=== PATIENT | female | born 1960 | race Caucasian/White ===

== ENCOUNTER 2017-02-14 11:02 | Emergency (ER) | payer MEDICARE, OTHER ==
[2017-02-14] MEDS ORDERED: HYDROcodone/Acetaminophen 10/325 mg Tablet ONE (11:19)
[2017-02-14] MEDS ORDERED: Ibuprofen 800 MG TAB ONE (11:19)
[2017-02-14 11:32] LABS: Blood, Urine Negative (Negative); Clarity Cloudy (Clear); Glucose, Urine (Dipstick) Negative (Negative); Leukocyte Trace (Negative); Nitrite Negative (Negative); Protein, Urine (Dipstick) 100 mg/dL (Neg-Trace)
[2017-02-14 11:40] LABS: Bilirubin Negative (Negative)
[2017-02-14 11:41] LABS: Bacteria/HPF 2+ HPF (None Seen)
[2017-02-14 11:42] LABS: Crystals/HPF 1+ AMORPH URATES HPF (Negative); RBC/HPF 0-3 HPF (0-3)
[2017-02-14 11:52] LABS: Specific Gravity, Urine Greater/Equal 1.030 (1.005-1.030)
== END 2017-02-14 11:54 | disposition home or self-care (01) ==
LOC: BURERS 11:02
DX: M54.5 Low back pain (principal); N30.00 Acute cystitis without hematuria; M19.90 Unspecified osteoarthritis, unspecified site; E03.9 Hypothyroidism, unspecified; I10 Essential (primary) hypertension; F31.9 Bipolar disorder, unspecified; F20.9 Schizophrenia, unspecified; F17.210 Nicotine dependence, cigarettes, uncomplicated; X50.3XXA Overexertion from repetitive movements, initial encounter; Z79.899 Other long term (current) drug therapy
CPT/HCPCS: 81003; 81015; 99283

== ENCOUNTER 2018-10-26 09:38 | Emergency (ER) | payer MEDICARE, MEDICAID | END 2018-10-26 10:15 | disposition home or self-care (01) | LOC: BURERS 09:38 | DX: J06.9 Acute upper respiratory infection, unspecified (principal); J44.9 Chronic obstructive pulmonary disease, unspecified; E03.9 Hypothyroidism, unspecified; I10 Essential (primary) hypertension; F31.9 Bipolar disorder, unspecified; F20.9 Schizophrenia, unspecified; F43.10 Post-traumatic stress disorder, unspecified; F17.210 Nicotine dependence, cigarettes, uncomplicated | CPT/HCPCS: 99281 ==

== ENCOUNTER 2019-09-11 10:53 | Inpatient (IN) | payer MEDICARE, MEDICAID ==
[2019-09-11] MEDS ORDERED: methylPREDNISolone Sod Succ/PF 125 MG/2 ML VIAL ONE (11:15)
[2019-09-11 11:33] LABS: #Lymphocytes 0.7 thou/uL (1.20-3.40); #Monocytes 0.5 thou/uL (0.11-0.59); #Neutrophils 6.9 thou/uL (1.40-6.50); %Basophils 0.4 % (0.0-1.0); %Eosinophils 0.6 % (0.0-10.0); %Lymphocytes 8.1 % (21.0-51.0); %Monocytes 5.7 % (0.0-10.0); %Neutrophils 85.2 % (42.0-75.0); Hemoglobin 14.1 g/dL (12.0-16.0); Mean Corpuscular HGB CONC 33.7 g/dL (32.0-36.0); Mean Corpuscular Hemoglobin 31.4 pg (27.0-31.0); Mean Corpuscular Volume 93.2 fL (78.0-98.0); Mean Platelet Volume 6.9 fL (7.4-10.4); Platelet Count 230 thou/uL (130-400); RBC Distribution Width 11.8 % (11.5-14.5); Red Blood Cell (RBC) Count 4.47 mill/uL (4.20-5.40); White Blood Cell (WBC) Count 8.1 thou/uL (4.8-10.8)
[2019-09-11] MEDS ORDERED: Albuterol Sulfate 1.25 MG/3 ML NEB ONE (11:42)
[2019-09-11] MEDS ORDERED: Albuterol Sulfate 2.5 mg/0.5 ml Neb ONE (11:43)
[2019-09-11 11:48] LABS: ALT (SGPT) 20 U/L (8-55); AST (SGOT) 23 U/L (5-34); Albumin 4.3 g/dL (3.5-5.0); Alkaline Phosphatase 63 U/L (40-110); Anion Gap 19 mmol/L (10-20); BUN (Urea Nitrogen) 12 mg/dL (9.8-20.1); Bilirubin, Total 0.9 mg/dL (0.2-1.2); Calc. Creatinine Clearance 0 mL/min (70-130); Calcium 8.9 mg/dL (7.8-10.44); Carbon Dioxide 24 mmol/L (22-29); Chloride 102 mmol/L (98-107); Estimated GFR-MDRD 46; Globulin 4.4 g/dL (2.4-3.5); Glucose 91 mg/dL (70-105); Potassium 4.7 mmol/L (3.5-5.1); Protein, Total 8.7 g/dL (6.0-8.3); Sodium 140 mmol/L (136-145)
[2019-09-11] MEDS ORDERED: Magnesium 2 GM/50 ML BAG (IN WATER) ONE (12:18)
[2019-09-11] MEDS ORDERED: AMOXicillin 250 MG CAP ONE (12:18)
[2019-09-11] MEDS ORDERED: Azithromycin 250 MG TAB ONE (12:18)
[2019-09-11] MEDS ORDERED: Ondansetron ODT 4 MG TAB SL PRN (14:08)
[2019-09-11] MEDS ORDERED: Ondansetron PF 4 MG/2 ML Vial IVP PRN (14:08)
[2019-09-11] MEDS ORDERED: Albuterol Sulfate 2.5 mg/3 ml Neb NEB PRN (15:45)
--- NOTE | 2019-09-11 18:00 | RAD ---
PORTABLE CHEST: 09/11/19 An AP portable film at 1136 shows a normal sized heart and clear lungs. No acute infiltrate was seen. There is no vascular congestion or edema. The only area that is questionable is some slight increase d density just above the left hemidiaphragm, but this may be a confluence of shadows. It certainly is not a global finding that would be associated with shortness of breath. IMPRESSION: No definite acute finding. POS: HOME
[2019-09-11] MEDS: Dextrose 5 %-0.45 % NaCl 1,000 ML IV SCH (18:39)
[2019-09-11] MEDS: methylPREDNISolone Sod Succ/PF 125 MG/2 ML VIAL IVP SCH (19:54)
[2019-09-11] MEDS: AMOXicillin 250 MG CAP PO SCH (19:55)
[2019-09-12] MEDS: Dextrose 5 %-0.45 % NaCl 1,000 ML IV SCH (02:03)
[2019-09-12] MEDS: AMOXicillin 250 MG CAP PO SCH ×3 (04:00→20:15)
[2019-09-12] MEDS: methylPREDNISolone Sod Succ/PF 125 MG/2 ML VIAL IVP SCH ×3 (04:00→20:15)
[2019-09-12] MEDS: Acetaminophen 325 MG TAB PO PRN (04:33)
[2019-09-12] MEDS: Guaifenesin DM 100-10/5 ML UDCUP PO PRN ×2 (05:50→13:43)
[2019-09-12] MEDS: Azithromycin 250 MG TAB PO SCH (08:31)
[2019-09-12] MEDS ORDERED: Prevnar 13-Val Conj/PF 0.5 ML SYRINGE IM ONE (09:00)
[2019-09-12] MEDS ORDERED: FLU VACC QS2019-20(6MOS UP)/PF 60 MCG/0.5 ML SYRINGE IM ONE (09:00)
[2019-09-12] MEDS: Pregabalin 50 MG CAP PO SCH ×2 (14:40→20:16)
[2019-09-12] MEDS: HYDROXYZINE PAMOATE 25 MG PO SCH ×2 (14:42→20:33)
[2019-09-12] MEDS: Divalproex Sodium 125 mg Sprinkle Capsule PO SCH (20:14)
[2019-09-12] MEDS: Famotidine 20 MG TAB PO SCH (20:15)
--- NOTE | 2019-09-12 20:18 | HP ---
CHIEF COMPLAINT: Shortness of breath and cough. HISTORY OF THE PRESENT ILLNESS: Ms. Burnett is a 59-year-old female patient of Dr. Paolo Burk with [facility], who presented with worsening cough, sputum production, and fever. The patient has a history of childhood asthma and COPD, but has not established with a collector of internal revenue. She is maintained on p.r.n. albuterol/Proventil at home for her symptoms and has cut down her smoking to approximately 3 to 4 cigarettes per week. She is not dependent on oxygen. Over the past 4 to 6 weeks, she has had a consistent cough and intermittent COPD symptoms that has been worsened with weather changes. Specifically, over the last four days, the patient started with thickened sputum that was yellow and slightly brownish in color, unmeasured fever, chills, and increased wheezing. She reports limited transportation and has not sought medication treatment outside of our ER. She did try some [id number] Mucinex, but as her symptoms were worsening, came to the ER for further evaluation. She reports that her primary care's office did not have an appointment on the day that she had a ride. In the emergency room, the patient was significantly tachypneic, hypoxic, required magnesium and [id number] nebs as well as supportive oxygen. The patient will be admitted for further treatment of acute hypoxic COPD exacerbation. PAST MEDICAL HISTORY: 1. Fibromyalgia. 2. Schizoaffective disorder. 3. Childhood asthma. 4. COPD, not O2 dependent, not established with Pulmonology. 5. Osteoarthritis. 6. Surgical hypothyroidism, status post thyroidectomy for multinodular goiter x2. 7. Hypertension. PAST SURGICAL HISTORY: Cholecystectomy and left thyroid lobectomy followed by total thyroidectomy. ALLERGIES: CEFTRIAXONE, CIPROFLOXACIN, DIPHENHYDRAMINE, SULFA, AND VANCOMYCIN. HOME MEDICATIONS: 1. Albuterol 2 puffs q.6 hours p.r.n. 2. Duloxetine 20 mg p.o. t.i.d. 3. Levothyroxine 225 mcg p.o. q.a.m., the patient admits frequent noncompliance. 4. Vistaril 25 mg p.o. t.i.d. 5. Tramadol 50 mg p.o. b.i.d. p.r.n. 6. Lisinopril/hydrochlorothiazide 20/12.5 one p.o. daily. 7. Lyrica 50 mg p.o. t.i.d. 8. Depakote 1000 mg p.o. at bedtime. FAMILY HISTORY: Noncontributory. SOCIAL HISTORY: The patient denies alcohol or illicit drug use. She currently smokes approximately 3 to 4 cigarettes per week. She reports this is significantly down from her previous average of half a pack a day. She lives alone. REVIEW OF SYSTEMS: CONSTITUTIONAL: Positive chills, fever that is subjective about three days ago and malaise. EYES: The patient denies eye redness, eye discharge. ENT: The patient reports rhinorrhea. Denies sinus pain, sore throat, or stridor. CARDIOVASCULAR: The patient complains of pleuritic chest pain and dyspnea on exertion. RESPIRATORY: The patient reports cough, shortness of breath, sputum production brown in color, and wheezing. No hemoptysis. GI: The patient reports anorexia, nausea, and vomiting. No diarrhea or constipation. No bilious emesis or hematemesis. GENITOURINARY: Denies dysuria, frequency, or urgency. MUSCULOSKELETAL: The patient has a history of chronic muscle discomfort due to fibromyalgia. No recent injury. SKIN: The patient denies rash, skin changes, or skin lesions. NEUROLOGIC: The patient denies confusion, dizziness, or lethargy. PSYCHIATRIC: The patient denies hallucinations. PHYSICAL EXAMINATION: VITAL SIGNS: Upon presentation to the emergency room; blood pressure 151/95, pulse 89, respirations 18, temperature 98.0. Pain 1/10 and O2 saturation 90% on room air. GENERAL: Well-developed, well-nourished female, alert and oriented x3, in no acute distress. Nasal cannula in place. HEENT: Normocephalic and atraumatic. Pupils equally round and reactive to light and accommodation. Extraocular muscles intact. Nares are patent without discharge. Tongue protrudes in the midline. NECK: Supple without lymphadenopathy, JVD, or bruit. CARDIOVASCULAR: Regular rate and rhythm with distant sounds. No murmurs, clicks, rubs, or gallops. LUNGS: Coarse breath sounds in the left lower lobe with rhonchi. Decreased air entry. No wheezing. ABDOMEN: Positive bowel sounds in all four quadrants. Soft, nontender, and nondistended. No masses, guarding, or rebound tenderness. EXTREMITIES: No cyanosis, clubbing, or edema. LABORATORY DATA: White count 8.1 with 85% neutrophils and 8% lymphocytes, hemoglobin 14.1, hematocrit 41.7, platelets 230. Sodium 140, potassium 4.7, chloride 102, bicarb 24, BUN 12, creatinine 1.21, glucose 91, calcium 8.9, T bilirubin 0.9, AST 23, ALT 20, alkaline phosphatase 63, serum total protein 8.7, albumin 4.3, globulin 4.4. Chest x-ray shows no definite acute finding, no acute infiltrates, vascular congestion or edema. Questionable of some slight increased density just above the left hemidiaphragm, but this may be confluence of shadows. ASSESSMENT AND PLAN: 1. Acute hypoxic respiratory failure due to exacerbation of chronic obstructive pulmonary disease. The patient will be admitted to the floor and placed on supportive oxygen. She will be weaned to room air as her condition improves. She has been placed on IV steroids of Solu-Medrol and given oral antibiotics of amoxicillin and azithromycin. She will be given neb treatments q.i.d. and p.r.n. We will refer her for outpatient PFTs and pulmonary rehab at discharge. The patient will be counseled regarding smoking cessation and decrease in mortality associated with smoking cessation as well as O2 initiation when appropriate. 2. Schizoaffective disorder. The patient will be continued on her divalproex and duloxetine. 3. Fibromyalgia. The patient will be continued on her duloxetine, Lyrica, and tramadol. 4. Surgical hypothyroidism. The patient admits to frequently forgetting her levothyroxine. We will check a TSH, but we will classification counselor compliance rather than adjusting her regimen if it is below goal. 5. Hypertension. The patient will be continued on her antihypertensive medication and will monitor for blood pressure goal of less than 140/90. 6. Prophylaxis. The patient will be placed on Pepcid and given SCDs. CODE STATUS: The patient is full code. Job ID: [id number]
[2019-09-13] MEDS: AMOXicillin 250 MG CAP PO SCH ×3 (05:06→20:35)
[2019-09-13] MEDS: Levothyroxine Sodium 25 MCG TAB PO SCH (05:07)
[2019-09-13] MEDS: Levothyroxine Sodium 100 MCG TAB PO SCH (05:07)
[2019-09-13] MEDS: methylPREDNISolone Sod Succ/PF 125 MG/2 ML VIAL IVP SCH ×3 (05:07→20:32)
[2019-09-13 06:14] LABS: #Lymphocytes 0.7 thou/uL (1.20-3.40); #Monocytes 0.4 thou/uL (0.11-0.59); #Neutrophils 11.7 thou/uL (1.40-6.50); %Basophils 0.2 % (0.0-1.0); %Lymphocytes 5.7 % (21.0-51.0); %Monocytes 3.1 % (0.0-10.0); Hemoglobin 12.3 g/dL (12.0-16.0); Mean Corpuscular HGB CONC 33.7 g/dL (32.0-36.0); Mean Corpuscular Hemoglobin 31.8 pg (27.0-31.0); Mean Corpuscular Volume 94.3 fL (78.0-98.0); Mean Platelet Volume 6.4 fL (7.4-10.4); Platelet Count 266 thou/uL (130-400); RBC Distribution Width 11.7 % (11.5-14.5); Red Blood Cell (RBC) Count 3.87 mill/uL (4.20-5.40); White Blood Cell (WBC) Count 12.8 thou/uL (4.8-10.8)
[2019-09-13 06:27] LABS: ALT (SGPT) 16 U/L (8-55); AST (SGOT) 11 U/L (5-34); Alkaline Phosphatase 64 U/L (40-110); Anion Gap 18 mmol/L (10-20); BUN (Urea Nitrogen) 16 mg/dL (9.8-20.1); Bilirubin, Total 0.3 mg/dL (0.2-1.2); Calc. Creatinine Clearance 59 mL/min (70-130); Calcium 7.7 mg/dL (7.8-10.44); Carbon Dioxide 22 mmol/L (22-29); Chloride 104 mmol/L (98-107); Estimated GFR-MDRD 41; Globulin 3.7 g/dL (2.4-3.5); Glucose 205 mg/dL (70-105); Potassium 4.4 mmol/L (3.5-5.1); Protein, Total 7.7 g/dL (6.0-8.3); Sodium 140 mmol/L (136-145)
[2019-09-13] MEDS: Famotidine 20 MG TAB PO SCH ×2 (09:04→20:34)
[2019-09-13] MEDS: Hydrochlorothiazide 25 MG TAB PO SCH (09:05)
[2019-09-13] MEDS: Azithromycin 250 MG TAB PO SCH (09:06)
[2019-09-13] MEDS: Lisinopril 20 MG TAB PO SCH (09:06)
[2019-09-13] MEDS: Pregabalin 50 MG CAP PO SCH ×3 (09:08→20:35)
[2019-09-13] MEDS: HYDROXYZINE PAMOATE 25 MG PO SCH ×3 (09:11→20:38)
[2019-09-13] MEDS: traMADol HCl 50 MG TAB PO PRN (12:26)
[2019-09-13] MEDS ORDERED: Dextrose 50% Abboject 50 ML SYRINGE SLOW IVP PRN (17:06)
[2019-09-13] MEDS ORDERED: Dextrose 5% in Water 1,000 ML IV PRN (17:06)
[2019-09-13] MEDS ORDERED: Insulin Regular 300 UNITS/3 ML VIAL SC PRN (17:06)
[2019-09-13] MEDS: Insulin Regular 300 UNITS/3 ML VIAL SC PRN (17:49)
[2019-09-13] MEDS: Divalproex Sodium 125 mg Sprinkle Capsule PO SCH (20:32)
[2019-09-13] MEDS: guaiFENesin ER 600 MG TAB PO SCH (20:34)
[2019-09-13] MEDS: Acetaminophen 325 MG TAB PO PRN (20:50)
[2019-09-14 05:16] LABS: #Lymphocytes 0.7 thou/uL (1.20-3.40); #Monocytes 0.4 thou/uL (0.11-0.59); #Neutrophils 14.2 thou/uL (1.40-6.50); %Basophils 0.1 % (0.0-1.0); %Lymphocytes 4.5 % (21.0-51.0); %Monocytes 2.4 % (0.0-10.0); Hemoglobin 12.3 g/dL (12.0-16.0); Mean Corpuscular HGB CONC 31.9 g/dL (32.0-36.0); Mean Corpuscular Hemoglobin 30.6 pg (27.0-31.0); Mean Corpuscular Volume 95.7 fL (78.0-98.0); Mean Platelet Volume 6.4 fL (7.4-10.4); Platelet Count 297 thou/uL (130-400); RBC Distribution Width 11.4 % (11.5-14.5); Red Blood Cell (RBC) Count 4.02 mill/uL (4.20-5.40); White Blood Cell (WBC) Count 15.3 thou/uL (4.8-10.8)
[2019-09-14] MEDS: AMOXicillin 250 MG CAP PO SCH ×3 (05:20→20:43)
[2019-09-14] MEDS: methylPREDNISolone Sod Succ/PF 125 MG/2 ML VIAL IVP SCH ×3 (05:20→20:45)
[2019-09-14] MEDS: Levothyroxine Sodium 25 MCG TAB PO SCH (05:21)
[2019-09-14] MEDS: Levothyroxine Sodium 100 MCG TAB PO SCH (05:21)
[2019-09-14 05:28] LABS: Anion Gap 16 mmol/L (10-20); BUN (Urea Nitrogen) 18 mg/dL (9.8-20.1); Calc. Creatinine Clearance 63 mL/min (70-130); Calcium 7.9 mg/dL (7.8-10.44); Carbon Dioxide 27 mmol/L (22-29); Chloride 102 mmol/L (98-107); Estimated GFR-MDRD 44; Glucose 154 mg/dL (70-105); Sodium 140 mmol/L (136-145)
[2019-09-14] MEDS: Insulin Regular 300 UNITS/3 ML VIAL SC PRN ×2 (08:00→12:32)
[2019-09-14] MEDS: Hydrochlorothiazide 25 MG TAB PO SCH (08:39)
[2019-09-14] MEDS: guaiFENesin ER 600 MG TAB PO SCH ×2 (08:39→20:42)
[2019-09-14] MEDS: Pregabalin 50 MG CAP PO SCH ×3 (08:41→20:43)
[2019-09-14] MEDS: Famotidine 20 MG TAB PO SCH ×2 (08:43→20:43)
[2019-09-14] MEDS: Lisinopril 20 MG TAB PO SCH (08:43)
[2019-09-14] MEDS: Azithromycin 250 MG TAB PO SCH (08:44)
[2019-09-14] MEDS: HYDROXYZINE PAMOATE 25 MG PO SCH ×3 (08:45→20:44)
[2019-09-14] MEDS: traMADol HCl 50 MG TAB PO PRN (08:52)
[2019-09-14] MEDS: Nicotine 7 MG PATCH TD SCH (16:03)
[2019-09-14] MEDS: Ketotifen Fumarate 0.025% Ophth Soln 5 ml Bottle EA EYE PRN (18:17)
[2019-09-15] MEDS: AMOXicillin 250 MG CAP PO SCH ×3 (04:57→20:14)
[2019-09-15] MEDS: Levothyroxine Sodium 25 MCG TAB PO SCH (04:58)
[2019-09-15] MEDS: Levothyroxine Sodium 100 MCG TAB PO SCH (04:58)
[2019-09-15 05:20] LABS: #Lymphocytes 0.7 thou/uL (1.20-3.40); #Monocytes 0.5 thou/uL (0.11-0.59); %Basophils 0.1 % (0.0-1.0); %Lymphocytes 4.7 % (21.0-51.0); %Neutrophils 92.1 % (42.0-75.0); Hemoglobin 13.4 g/dL (12.0-16.0); Mean Corpuscular HGB CONC 32.7 g/dL (32.0-36.0); Mean Corpuscular Hemoglobin 30.8 pg (27.0-31.0); Mean Corpuscular Volume 94.3 fL (78.0-98.0); Mean Platelet Volume 6.5 fL (7.4-10.4); Platelet Count 319 thou/uL (130-400); RBC Distribution Width 11.7 % (11.5-14.5); Red Blood Cell (RBC) Count 4.35 mill/uL (4.20-5.40); White Blood Cell (WBC) Count 15.2 thou/uL (4.8-10.8)
[2019-09-15 05:31] LABS: Anion Gap 16 mmol/L (10-20); BUN (Urea Nitrogen) 26 mg/dL (9.8-20.1); Calc. Creatinine Clearance 59 mL/min (70-130); Calcium 7.7 mg/dL (7.8-10.44); Carbon Dioxide 28 mmol/L (22-29); Chloride 97 mmol/L (98-107); Estimated GFR-MDRD 41; Glucose 131 mg/dL (70-105); Potassium 4.6 mmol/L (3.5-5.1); Sodium 136 mmol/L (136-145)
[2019-09-15] MEDS: Azithromycin 250 MG TAB PO SCH (08:22)
[2019-09-15] MEDS: guaiFENesin ER 600 MG TAB PO SCH ×2 (08:22→20:14)
[2019-09-15] MEDS: Hydrochlorothiazide 25 MG TAB PO SCH (08:23)
[2019-09-15] MEDS: Famotidine 20 MG TAB PO SCH ×2 (08:23→20:14)
[2019-09-15] MEDS: Lisinopril 20 MG TAB PO SCH (08:24)
[2019-09-15] MEDS: predniSONE 20 MG TAB PO SCH (08:26)
[2019-09-15] MEDS: Pregabalin 50 MG CAP PO SCH ×3 (08:27→20:14)
[2019-09-15] MEDS: HYDROXYZINE PAMOATE 25 MG PO SCH ×3 (08:28→20:15)
[2019-09-15] MEDS: Insulin Regular 300 UNITS/3 ML VIAL SC PRN ×3 (08:29→17:43)
[2019-09-15] MEDS: traMADol HCl 50 MG TAB PO PRN (08:38)
--- NOTE | 2019-09-15 11:01 | RAD ---
PA AND LATERAL CHEST: Date: 09/15/2019 HISTORY: COPD and hypoxia. FINDINGS: Heart size is within normal limits. There are some bibasilar interstitial lung changes. These appear more prominent than they did on the 09/01/2019 exam. Slightly more confluent changes in the posterior sulcus region is seen on the lateral film. It is difficult to localize this as to the right or left side. IMPRESSION: Worsening bibasilar interstitial lung change. POS: ANJU
[2019-09-15] MEDS ORDERED: Milk Of Magnesia 30 ML UDCUP PO PRN (11:36)
[2019-09-15] MEDS: Ketotifen Fumarate 0.025% Ophth Soln 5 ml Bottle EA EYE PRN (12:19)
[2019-09-15] MEDS: Nicotine 7 MG PATCH TD SCH (15:49)
[2019-09-16] MEDS ORDERED: AMOXicillin 250 MG CAP ONE (04:57)
[2019-09-16] MEDS: AMOXicillin 250 MG CAP PO SCH ×2 (05:03→11:55)
[2019-09-16] MEDS: Levothyroxine Sodium 100 MCG TAB PO SCH (05:03)
[2019-09-16] MEDS: Levothyroxine Sodium 25 MCG TAB PO SCH (05:04)
[2019-09-16 05:18] LABS: #Lymphocytes 0.8 thou/uL (1.20-3.40); #Monocytes 0.5 thou/uL (0.11-0.59); #Neutrophils 9.5 thou/uL (1.40-6.50); %Basophils 0.3 % (0.0-1.0); %Lymphocytes 7.4 % (21.0-51.0); %Monocytes 4.8 % (0.0-10.0); %Neutrophils 87.5 % (42.0-75.0); Hemoglobin 13.4 g/dL (12.0-16.0); Mean Corpuscular HGB CONC 33.4 g/dL (32.0-36.0); Mean Corpuscular Hemoglobin 31.7 pg (27.0-31.0); Mean Corpuscular Volume 94.7 fL (78.0-98.0); Mean Platelet Volume 6.3 fL (7.4-10.4); Platelet Count 297 thou/uL (130-400); RBC Distribution Width 11.7 % (11.5-14.5); Red Blood Cell (RBC) Count 4.22 mill/uL (4.20-5.40); White Blood Cell (WBC) Count 10.8 thou/uL (4.8-10.8)
[2019-09-16 05:32] LABS: ALT (SGPT) 22 U/L (8-55); AST (SGOT) 11 U/L (5-34); Albumin 3.6 g/dL (3.5-5.0); Alkaline Phosphatase 68 U/L (40-110); Anion Gap 15 mmol/L (10-20); BUN (Urea Nitrogen) 29 mg/dL (9.8-20.1); Bilirubin, Total 0.3 mg/dL (0.2-1.2); Calc. Creatinine Clearance 59 mL/min (70-130); Calcium 7.8 mg/dL (7.8-10.44); Carbon Dioxide 32 mmol/L (22-29); Chloride 94 mmol/L (98-107); Estimated GFR-MDRD 41; Globulin 3.1 g/dL (2.4-3.5); Glucose 100 mg/dL (70-105); Potassium 4.9 mmol/L (3.5-5.1); Protein, Total 6.7 g/dL (6.0-8.3); Sodium 136 mmol/L (136-145)
[2019-09-16] MEDS: Famotidine 20 MG TAB PO SCH (08:04)
[2019-09-16] MEDS: predniSONE 20 MG TAB PO SCH (08:05)
[2019-09-16] MEDS: guaiFENesin ER 600 MG TAB PO SCH (08:05)
[2019-09-16] MEDS: Hydrochlorothiazide 25 MG TAB PO SCH (08:06)
[2019-09-16] MEDS: Azithromycin 250 MG TAB PO SCH (08:06)
[2019-09-16] MEDS: Pregabalin 50 MG CAP PO SCH (08:07)
[2019-09-16] MEDS: Lisinopril 20 MG TAB PO SCH (08:08)
[2019-09-16] MEDS: Ketotifen Fumarate 0.025% Ophth Soln 5 ml Bottle EA EYE PRN (08:11)
[2019-09-16] MEDS: HYDROXYZINE PAMOATE 25 MG PO SCH (09:11)
[2019-09-16] MEDS: traMADol HCl 50 MG TAB PO PRN (11:55)
[2019-09-16 13:10] VITALS: BP 136/84; TEMP 98.5
== END 2019-09-16 13:11 | disposition swing bed (61) | DRG 189 ==
LOC: BURERS 10:53 → BURMED 12:20
PROVIDERS: ADMIT Family Medicine; ATTEND Family Medicine
DX: J96.01 Acute respiratory failure with hypoxia (principal); J44.1 Chronic obstructive pulmonary disease with (acute) exacerbation; F25.9 Schizoaffective disorder, unspecified; M79.7 Fibromyalgia; Z71.6 Tobacco abuse counseling; M19.90 Unspecified osteoarthritis, unspecified site; Z88.1 Allergy status to other antibiotic agents; Z88.2 Allergy status to sulfonamides; F17.210 Nicotine dependence, cigarettes, uncomplicated; J45.909 Unspecified asthma, uncomplicated; E89.0 Postprocedural hypothyroidism; D72.829 Elevated white blood cell count, unspecified; T38.0X5A Adverse effect of glucocorticoids and synthetic analogues, initial encounter; K59.00 Constipation, unspecified; R73.9 Hyperglycemia, unspecified; I12.9 Hypertensive chronic kidney disease with stage 1 through stage 4 chronic kidney disease, or unspecified chronic kidney disease; N18.3 Chronic kidney disease, stage 3 (moderate); Z91.14 Patient's other noncompliance with medication regimen
CPT/HCPCS: 36415; 36416; 71045; 71046; 80048; 80053; 84443; 85025; 87804; 90471; 90670; 90686; 94640; 94760; 96361; 96374; 96375; G0008; G0009; J1815; J2930; J3475; J7512; J7611; J7620

== ENCOUNTER 2019-09-16 13:11 | Inpatient (IN) | payer MEDICARE, MEDICAID ==
[2019-09-16] MEDS ORDERED: Dextrose 5% in Water 1,000 ML IV PRN (15:41)
[2019-09-16] MEDS ORDERED: Dextrose 50% Abboject 50 ML SYRINGE IVP PRN (15:41)
[2019-09-16] MEDS ORDERED: Albuterol Sulfate 2.5 mg/0.5 ml Neb NEB PRN (15:48)
[2019-09-16] MEDS ORDERED: Insulin Regular 300 UNITS/3 ML VIAL SC PRN (15:48)
[2019-09-16] MEDS ORDERED: Milk Of Magnesia 30 ML UDCUP PO PRN (15:49)
[2019-09-16] MEDS ORDERED: Ondansetron PF 4 MG/2 ML Vial IVP PRN (15:50)
[2019-09-16] MEDS ORDERED: Ondansetron ODT 4 MG TAB PO PRN (15:50)
[2019-09-16] MEDS ORDERED: Albuterol Sulfate 2.5 mg/3 ml Neb NEB PRN (16:14)
[2019-09-16] MEDS ORDERED: Nicotine 7 MG PATCH TOP SCH (16:30)
[2019-09-16] MEDS ORDERED: Pregabalin 50 MG CAP PO SCH (16:30)
[2019-09-16] MEDS ORDERED: Ondansetron ODT 4 MG TAB SL PRN (17:00)
[2019-09-16] MEDS: Insulin Regular 300 UNITS/3 ML VIAL SC PRN (17:45)
[2019-09-16] MEDS: AMOXicillin 250 MG CAP PO SCH (20:37)
[2019-09-16] MEDS: guaiFENesin ER 600 MG TAB PO SCH (20:37)
[2019-09-16] MEDS: Pregabalin 50 MG CAP PO SCH (20:39)
[2019-09-16] MEDS: Famotidine 20 MG TAB PO SCH (20:39)
[2019-09-17] MEDS: AMOXicillin 250 MG CAP PO SCH ×3 (05:05→20:31)
[2019-09-17] MEDS: Levothyroxine Sodium 100 MCG TAB PO SCH (05:05)
[2019-09-17] MEDS: Levothyroxine Sodium 25 MCG TAB PO SCH (05:05)
[2019-09-17] MEDS: guaiFENesin ER 600 MG TAB PO SCH ×2 (08:38→20:31)
[2019-09-17] MEDS: predniSONE 20 MG TAB PO SCH (08:39)
[2019-09-17] MEDS: Famotidine 20 MG TAB PO SCH ×2 (08:40→20:31)
[2019-09-17] MEDS: Azithromycin 250 MG TAB PO SCH (08:40)
[2019-09-17] MEDS: Hydrochlorothiazide 25 MG TAB PO SCH (08:42)
[2019-09-17] MEDS: Pregabalin 50 MG CAP PO SCH ×3 (08:43→20:32)
[2019-09-17] MEDS: Nicotine 7 MG PATCH TOP SCH (08:43)
[2019-09-17] MEDS: Lisinopril 20 MG TAB PO SCH (08:46)
[2019-09-17] MEDS: Ketotifen Fumarate 0.025% Ophth Soln 5 ml Bottle EA EYE PRN (08:54)
[2019-09-17] MEDS: traMADol HCl 50 MG TAB PO PRN (11:22)
[2019-09-17] MEDS: hydrOXYzine 25 MG TAB PO PRN (12:34)
[2019-09-17] MEDS: Insulin Regular 300 UNITS/3 ML VIAL SC PRN (18:04)
[2019-09-18] MEDS: AMOXicillin 250 MG CAP PO SCH ×2 (04:48→12:12)
[2019-09-18] MEDS: Levothyroxine Sodium 100 MCG TAB PO SCH (05:54)
[2019-09-18] MEDS: Levothyroxine Sodium 25 MCG TAB PO SCH (05:54)
[2019-09-18] MEDS: traMADol HCl 50 MG TAB PO PRN (07:33)
[2019-09-18] MEDS: Nicotine 7 MG PATCH TOP SCH (08:52)
[2019-09-18] MEDS: Pregabalin 50 MG CAP PO SCH ×3 (08:54→20:28)
[2019-09-18] MEDS: Famotidine 20 MG TAB PO SCH ×2 (08:56→20:28)
[2019-09-18] MEDS: predniSONE 20 MG TAB PO SCH ×2 (08:57→14:10)
[2019-09-18] MEDS: Lisinopril 20 MG TAB PO SCH (08:57)
[2019-09-18] MEDS: guaiFENesin ER 600 MG TAB PO SCH ×2 (08:57→20:28)
[2019-09-18] MEDS: Hydrochlorothiazide 25 MG TAB PO SCH (08:58)
[2019-09-18] MEDS: Ketotifen Fumarate 0.025% Ophth Soln 5 ml Bottle EA EYE PRN (16:10)
[2019-09-18] MEDS: Insulin Regular 300 UNITS/3 ML VIAL SC PRN (18:37)
[2019-09-19] MEDS: Ketotifen Fumarate 0.025% Ophth Soln 5 ml Bottle EA EYE PRN ×2 (01:27→17:02)
[2019-09-19] MEDS: traMADol HCl 50 MG TAB PO PRN ×2 (02:41→15:31)
[2019-09-19] MEDS: Levothyroxine Sodium 100 MCG TAB PO SCH (06:31)
[2019-09-19] MEDS: Levothyroxine Sodium 25 MCG TAB PO SCH (06:32)
[2019-09-19] MEDS: Fluticasone Propionate Nasal Spray 16 gm Bottle NASAL SCH (08:22)
[2019-09-19] MEDS: Nicotine 7 MG PATCH TOP SCH (08:23)
[2019-09-19] MEDS: Famotidine 20 MG TAB PO SCH ×2 (08:25→20:45)
[2019-09-19] MEDS: guaiFENesin ER 600 MG TAB PO SCH ×2 (08:25→20:46)
[2019-09-19] MEDS: Hydrochlorothiazide 25 MG TAB PO SCH (08:25)
[2019-09-19] MEDS: Pregabalin 50 MG CAP PO SCH ×3 (08:26→20:46)
[2019-09-19] MEDS: Lisinopril 20 MG TAB PO SCH (08:26)
[2019-09-19] MEDS: predniSONE 20 MG TAB PO SCH (08:28)
[2019-09-19] MEDS: Acetaminophen 325 MG TAB PO PRN (12:40)
[2019-09-19 18:10] LABS: HIV (1/2) Antibody/Antigen Non-Reactive (NonReactive); HIV 1/2 INDEX 0.12 S/CO (<1.00)
[2019-09-19] MEDS: Insulin Regular 300 UNITS/3 ML VIAL SC PRN (18:22)
[2019-09-19] MEDS: valACYclovir 500 MG TAB PO SCH (20:45)
[2019-09-20] MEDS: Levothyroxine Sodium 25 MCG TAB PO SCH (06:01)
[2019-09-20] MEDS: Levothyroxine Sodium 100 MCG TAB PO SCH (06:01)
[2019-09-20] MEDS: Fluticasone Propionate Nasal Spray 16 gm Bottle NASAL SCH (09:23)
[2019-09-20] MEDS: Nicotine 7 MG PATCH TOP SCH (09:23)
[2019-09-20] MEDS: Famotidine 20 MG TAB PO SCH ×2 (09:25→20:58)
[2019-09-20] MEDS: Hydrochlorothiazide 25 MG TAB PO SCH (09:26)
[2019-09-20] MEDS: predniSONE 20 MG TAB PO SCH (09:26)
[2019-09-20] MEDS: valACYclovir 500 MG TAB PO SCH ×2 (09:27→20:58)
[2019-09-20] MEDS: guaiFENesin ER 600 MG TAB PO SCH ×2 (09:28→20:58)
[2019-09-20] MEDS: Lisinopril 20 MG TAB PO SCH (09:28)
[2019-09-20] MEDS: traMADol HCl 50 MG TAB PO PRN (09:28)
[2019-09-20] MEDS: Pregabalin 50 MG CAP PO SCH ×3 (09:30→20:58)
[2019-09-20] MEDS: hydrOXYzine 25 MG TAB PO PRN (14:28)
[2019-09-20] MEDS: Ketotifen Fumarate 0.025% Ophth Soln 5 ml Bottle EA EYE PRN (19:30)
[2019-09-20] MEDS: Acetaminophen 325 MG TAB PO PRN (19:33)
[2019-09-21] MEDS: Levothyroxine Sodium 100 MCG TAB PO SCH (06:06)
[2019-09-21] MEDS: Levothyroxine Sodium 25 MCG TAB PO SCH (06:06)
[2019-09-21] MEDS: guaiFENesin ER 600 MG TAB PO SCH ×2 (08:40→20:44)
[2019-09-21] MEDS: Hydrochlorothiazide 25 MG TAB PO SCH (08:41)
[2019-09-21] MEDS: predniSONE 20 MG TAB PO SCH (08:41)
[2019-09-21] MEDS: Famotidine 20 MG TAB PO SCH ×2 (08:42→20:44)
[2019-09-21] MEDS: valACYclovir 500 MG TAB PO SCH ×2 (08:43→20:44)
[2019-09-21] MEDS: Lisinopril 20 MG TAB PO SCH (08:43)
[2019-09-21] MEDS: Nicotine 7 MG PATCH TOP SCH (08:44)
[2019-09-21] MEDS: Fluticasone Propionate Nasal Spray 16 gm Bottle NASAL SCH (08:44)
[2019-09-21] MEDS: Pregabalin 50 MG CAP PO SCH ×3 (08:45→20:45)
[2019-09-21] MEDS: traMADol HCl 50 MG TAB PO PRN (08:48)
[2019-09-21] MEDS: Ketotifen Fumarate 0.025% Ophth Soln 5 ml Bottle EA EYE PRN (10:43)
[2019-09-21] MEDS: Insulin Regular 300 UNITS/3 ML VIAL SC PRN (18:15)
[2019-09-21] MEDS: hydrOXYzine 25 MG TAB PO PRN (20:45)
[2019-09-22] MEDS: traMADol HCl 50 MG TAB PO PRN (04:51)
[2019-09-22] MEDS: Levothyroxine Sodium 100 MCG TAB PO SCH (06:03)
[2019-09-22] MEDS: Levothyroxine Sodium 25 MCG TAB PO SCH (06:03)
[2019-09-22] MEDS: valACYclovir 500 MG TAB PO SCH ×2 (08:21→20:25)
[2019-09-22] MEDS: Famotidine 20 MG TAB PO SCH ×2 (08:21→20:24)
[2019-09-22] MEDS: Lisinopril 20 MG TAB PO SCH (08:21)
[2019-09-22] MEDS: Nicotine 7 MG PATCH TOP SCH (08:24)
[2019-09-22] MEDS: Pregabalin 50 MG CAP PO SCH ×3 (08:25→20:25)
[2019-09-22] MEDS: guaiFENesin ER 600 MG TAB PO SCH ×2 (08:25→20:25)
[2019-09-22] MEDS: Hydrochlorothiazide 25 MG TAB PO SCH (08:25)
[2019-09-22] MEDS: Fluticasone Propionate Nasal Spray 16 gm Bottle NASAL SCH (08:26)
[2019-09-22] MEDS: hydrOXYzine 25 MG TAB PO PRN (08:27)
[2019-09-22] MEDS: Acetaminophen 325 MG TAB PO PRN (14:28)
[2019-09-23] MEDS: Levothyroxine Sodium 100 MCG TAB PO SCH (06:05)
[2019-09-23] MEDS: Levothyroxine Sodium 25 MCG TAB PO SCH (06:05)
[2019-09-23] MEDS: Fluticasone Propionate Nasal Spray 16 gm Bottle NASAL SCH (08:40)
[2019-09-23] MEDS: Hydrochlorothiazide 25 MG TAB PO SCH (08:41)
[2019-09-23] MEDS: Famotidine 20 MG TAB PO SCH ×2 (08:41→20:17)
[2019-09-23] MEDS: guaiFENesin ER 600 MG TAB PO SCH ×2 (08:41→20:17)
[2019-09-23] MEDS: valACYclovir 500 MG TAB PO SCH ×2 (08:42→20:18)
[2019-09-23] MEDS: Pregabalin 50 MG CAP PO SCH ×3 (08:42→20:18)
[2019-09-23] MEDS: Lisinopril 20 MG TAB PO SCH (08:44)
[2019-09-23] MEDS: Nicotine 7 MG PATCH TOP SCH (08:45)
[2019-09-23] MEDS: traMADol HCl 50 MG TAB PO PRN (20:21)
[2019-09-24] MEDS: Levothyroxine Sodium 25 MCG TAB PO SCH (05:51)
[2019-09-24] MEDS: Levothyroxine Sodium 100 MCG TAB PO SCH (06:03)
[2019-09-24 08:56] LABS: #Lymphocytes 0.9 thou/uL (1.20-3.40); #Monocytes 0.8 thou/uL (0.11-0.59); #Neutrophils 6.2 thou/uL (1.40-6.50); %Basophils 0.6 % (0.0-1.0); %Eosinophils 0.4 % (0.0-10.0); %Lymphocytes 10.9 % (21.0-51.0); %Monocytes 9.6 % (0.0-10.0); %Neutrophils 78.5 % (42.0-75.0); Hemoglobin 10.5 g/dL (12.0-16.0); Mean Corpuscular HGB CONC 31.4 g/dL (32.0-36.0); Mean Corpuscular Hemoglobin 29.8 pg (27.0-31.0); Platelet Count 186 thou/uL (130-400); RBC Distribution Width 11.8 % (11.5-14.5); Red Blood Cell (RBC) Count 3.53 mill/uL (4.20-5.40); White Blood Cell (WBC) Count 7.9 thou/uL (4.8-10.8)
[2019-09-24 09:10] LABS: ALT (SGPT) 11 U/L (8-55); AST (SGOT) 13 U/L (5-34); Albumin 3.6 g/dL (3.5-5.0); Alkaline Phosphatase 62 U/L (40-110); Anion Gap 15 mmol/L (10-20); BUN (Urea Nitrogen) 33 mg/dL (9.8-20.1); Bilirubin, Total 0.4 mg/dL (0.2-1.2); Calc. Creatinine Clearance 64 mL/min (70-130); Calcium 8.4 mg/dL (7.8-10.44); Carbon Dioxide 34 mmol/L (22-29); Chloride 89 mmol/L (98-107); Estimated GFR-MDRD 39; Globulin 2.6 g/dL (2.4-3.5); Glucose 88 mg/dL (70-105); Potassium 4.2 mmol/L (3.5-5.1); Protein, Total 6.2 g/dL (6.0-8.3); Sodium 134 mmol/L (136-145)
[2019-09-24] MEDS: Hydrochlorothiazide 25 MG TAB PO SCH (10:01)
[2019-09-24] MEDS: guaiFENesin ER 600 MG TAB PO SCH ×2 (10:06→21:32)
[2019-09-24] MEDS: Pregabalin 50 MG CAP PO SCH ×3 (10:06→21:34)
[2019-09-24] MEDS: valACYclovir 500 MG TAB PO SCH ×2 (10:06→21:34)
[2019-09-24] MEDS: Nicotine 7 MG PATCH TOP SCH (10:08)
[2019-09-24] MEDS: Fluticasone Propionate Nasal Spray 16 gm Bottle NASAL SCH (10:08)
[2019-09-24] MEDS: Famotidine 20 MG TAB PO SCH ×2 (10:09→21:34)
[2019-09-24] MEDS: Lisinopril 20 MG TAB PO SCH (10:50)
[2019-09-24 12:26] VITALS: BMI 39.2
[2019-09-24 13:21] LABS: Bilirubin Negative (Negative); Blood, Urine Negative (Negative); Clarity Clear (Clear); Glucose, Urine (Dipstick) Negative (Negative); Leukocyte Moderate (Negative); Nitrite Negative (Negative); Protein, Urine (Dipstick) Negative (Neg-Trace); Urobilinogen 0.2 mg/dL (Less than 2)
[2019-09-24 13:24] LABS: Urine Culture Reflex No No
[2019-09-24 13:28] LABS: RBC/HPF None Seen HPF (0-3); Squamous Epithelial 0-3 HPF (0-3); WBC/HPF 0-3 HPF (0-3)
[2019-09-24 13:29] LABS: Bacteria/HPF Rare-Few HPF (None Seen)
--- NOTE | 2019-09-24 14:08 | RAD ---
LEFT ANKLE 2 VIEWS: Date: 09/24/2019 No fracture was seen. All bony structures appear intact and the joint itself was unremarkable. A larg e calcaneal spur was noted. IMPRESSION: No acute findings. POS: HOME
--- NOTE | 2019-09-24 14:08 | RAD ---
LEFT HIP 2 VIEWS: DATE: 09/24/2019. FINDINGS: No fracture, dislocation, or joint space narrowing was seen. The adjacent pubic ring appears intact. IMPRESSION: No acute findings. POS: HOME
--- NOTE | 2019-09-24 14:09 | RAD ---
LEFT KNEE 4 VIEWS: DATE: 09/24/2019. FINDINGS: A left knee arthroplasty is in place. There is no sign of loosening or infection of the hardware. N o acute fracture or joint effusion was seen. IMPRESSION: No acute findings. POS: HOME
[2019-09-24] MEDS: Ketotifen Fumarate 0.025% Ophth Soln 5 ml Bottle EA EYE PRN (18:39)
[2019-09-24] MEDS: Acetaminophen 325 MG TAB PO PRN (18:44)
[2019-09-25 05:12] LABS: #Monocytes 0.6 thou/uL (0.11-0.59); #Neutrophils 4.3 thou/uL (1.40-6.50); %Basophils 0.6 % (0.0-1.0); %Eosinophils 0.2 % (0.0-10.0); %Lymphocytes 16.4 % (21.0-51.0); %Monocytes 10.5 % (0.0-10.0); %Neutrophils 72.4 % (42.0-75.0); Hemoglobin 10.7 g/dL (12.0-16.0); Mean Corpuscular HGB CONC 32.7 g/dL (32.0-36.0); Mean Corpuscular Hemoglobin 31.7 pg (27.0-31.0); Mean Corpuscular Volume 97.2 fL (78.0-98.0); Mean Platelet Volume 8.1 fL (7.4-10.4); Platelet Count 157 thou/uL (130-400); RBC Distribution Width 12.1 % (11.5-14.5); Red Blood Cell (RBC) Count 3.38 mill/uL (4.20-5.40); White Blood Cell (WBC) Count 5.9 thou/uL (4.8-10.8)
[2019-09-25] MEDS: Levothyroxine Sodium 100 MCG TAB PO SCH (05:15)
[2019-09-25] MEDS: Levothyroxine Sodium 25 MCG TAB PO SCH (05:15)
[2019-09-25 05:18] LABS: Anion Gap 16 mmol/L (10-20); BUN (Urea Nitrogen) 27 mg/dL (9.8-20.1); Calc. Creatinine Clearance 66 mL/min (70-130); Calcium 8.7 mg/dL (7.8-10.44); Carbon Dioxide 31 mmol/L (22-29); Chloride 92 mmol/L (98-107); Estimated GFR-MDRD 41; Glucose 88 mg/dL (70-105); Potassium 4.7 mmol/L (3.5-5.1); Sodium 134 mmol/L (136-145)
[2019-09-25] MEDS: Nicotine 7 MG PATCH TOP SCH (08:29)
[2019-09-25] MEDS: Fluticasone Propionate Nasal Spray 16 gm Bottle NASAL SCH (08:29)
[2019-09-25] MEDS: Pregabalin 50 MG CAP PO SCH ×3 (08:29→20:59)
[2019-09-25] MEDS: valACYclovir 500 MG TAB PO SCH ×2 (08:31→20:58)
[2019-09-25] MEDS: Famotidine 20 MG TAB PO SCH ×2 (08:31→20:57)
[2019-09-25] MEDS: guaiFENesin ER 600 MG TAB PO SCH ×2 (08:31→20:58)
[2019-09-25] MEDS: Lisinopril 20 MG TAB PO SCH (08:38)
[2019-09-26] MEDS: traMADol HCl 50 MG TAB PO PRN (00:21)
[2019-09-26 05:41] VITALS: TEMP 98
[2019-09-26] MEDS: Levothyroxine Sodium 25 MCG TAB PO SCH (05:59)
[2019-09-26] MEDS: Levothyroxine Sodium 100 MCG TAB PO SCH (05:59)
[2019-09-26] MEDS: Fluticasone Propionate Nasal Spray 16 gm Bottle NASAL SCH (08:38)
[2019-09-26] MEDS: Nicotine 7 MG PATCH TOP SCH (08:38)
[2019-09-26] MEDS: valACYclovir 500 MG TAB PO SCH (08:39)
[2019-09-26] MEDS: Lisinopril 20 MG TAB PO SCH (08:40)
[2019-09-26] MEDS: Famotidine 20 MG TAB PO SCH (08:40)
[2019-09-26] MEDS: Pregabalin 50 MG CAP PO SCH ×2 (08:40→14:00)
[2019-09-26] MEDS: guaiFENesin ER 600 MG TAB PO SCH (08:41)
[2019-09-26 08:42] VITALS: BP 105/71
--- NOTE | 2019-09-27 09:22 | DIS ---
DATE OF ADMISSION: 09/16/2019 DATE OF DISCHARGE: 09/26/2019 Date of inpatient admission September 11, 2019. Date of discharge to [facility] September 16, 2019. Date of discharge to home, September 16, 2019. ADMISSION DIAGNOSES: 1. Acute hypoxic respiratory failure. 2. Acute exacerbation of chronic obstructive pulmonary disease. 3. Schizoaffective disorder. 4. Fibromyalgia. 5. Surgical hypothyroidism. 6. Hypertension. DISCHARGE DIAGNOSES: 1. Acute hypoxic respiratory failure. 2. Acute exacerbation of chronic obstructive pulmonary disease. 3. Schizoaffective disorder. 4. Fibromyalgia. 5. Surgical hypothyroidism. 6. Hypertension. 7. Physical deconditioning. 8. Herpes simplex virus type 2. 9. Genital outbreak. 10. Transient alteration of mental status with a fall. 11. Knee contusion. HISTORY AND PHYSICAL: Please see dictated report from the day of admission. PROCEDURES: 1. Chest x-ray on September 11, 2019, shows no definite acute findings. 2. Chest x-ray on September 15, 2019, showing worsening bibasilar interstitial lung change. 3. Ankle x-ray from September 24, 2019, shows no acute findings. 4. Hip x-ray on September 24, 2019, no acute findings. 5. Knee x-ray on September 24, 2019, no acute findings. HOSPITAL COURSE: Ms. Burnett is a 59-year-old female with past medical history of schizoaffective disorder and fibromyalgia, who presented to the emergency setting with worsening cough, shortness of breath, and acute hypoxic respiratory failure due to COPD exacerbation. She was admitted and treated with IV azithromycin and oral amoxicillin due to multiple existing drug allergies. She was also placed on Solu-Medrol IV, which was transitioned to oral prednisone and continued to taper throughout her hospitalization that is now complete. She was weaned from 3 L of O2 down to room air successfully and her lungs were completely clear by the time of her discharge. During her inpatient stay for her COPD exacerbation, she became physically deconditioned and required physical therapy evaluation. She also had steroid-induced leukocytosis and hyperglycemia, which was treated with sliding scale per protocol and eventually resolved. Additional testing was performed that showed her surgical hypothyroidism not to be at goal and she admitted medication noncompliance and this was counseled during her hospitalization. Her retirement course was complicated by a bout of vertigo and noted middle ear effusion that improved with fluticasone nasal spray, which will be continued as an outpatient. In addition, she had an episode of alteration of mental status and increased sedation, in which she suffered a fall. Code green was performed for response on September 24, 2019. She sustained a contusion to her knee on the left, so both the joint above and below were imaged without acute findings. This pain diminished over the remainder of her hospital stay and the transient alteration of mental status resolved. The patient had a history of tobacco abuse and smoking cessation counseled during her hospitalization. She was on a nicotine patch and this will be continued as an outpatient. The patient also had outbreak of anal ulcerations and a culture was performed, which was positive for herpes simplex type 2. She was treated with a seven-day course of Valtrex. She was counseled regarding infectious nature, prevention, and avoidance of spreading. She tested HIV negative. It was recommended that if she continue sexually transmitted infection, rule out in the outpatient setting. Regarding her COPD, she will be discharged with a new prescription for nebulizer and DuoNeb to use as well as Dulera for prevention of COPD exacerbation. She was advised to have PFTs as an outpatient as she would be a good candidate for pulmonary rehab here. DISPOSITION: Discharged to home. CONDITION: Good. MEDICATIONS: 1. Tramadol 50 mg p.o. b.i.d. p.r.n. pain. 2. Hydroxyzine 25 mg p.o. t.i.d. 3. Lyrica 50 mg p.o. t.i.d. 4. Nicoderm CQ 7 mg transdermal q.24 hours. 5. Dulera 100/5 two puffs inhaled b.i.d. 6. Milk of magnesia 30 mL p.o. daily p.r.n. 7. Lisinopril/hydrochlorothiazide one p.o. daily. 8. Levothyroxine 225 mcg p.o. daily. 9. Ketotifen fumarate 0.025% ophthalmic solution one drop in each eye b.i.d. p.r.n. 10. DuoNeb 3 mL nebulized q.6 hours p.r.n. 11. Fluticasone nasal spray two puffs nasally daily. 12. Depakote 1000 mg p.o. at bedtime. 13. Cymbalta 20 mg p.o. t.i.d. 14. Albuterol HFA two puffs q.6 hours p.r.n. shortness of breath or wheezing. FOLLOWUP: Follow up with PCP, Dr. Paolo Burk in approximately 7 to 10 days. Job ID: [id number]
== END 2019-09-26 15:37 | disposition home or self-care (01) | DRG 189 ==
LOC: BURMED 13:11
PROVIDERS: ADMIT Family Medicine; ATTEND Family Medicine
DX: J96.21 Acute and chronic respiratory failure with hypoxia (principal); J44.1 Chronic obstructive pulmonary disease with (acute) exacerbation; R53.81 Other malaise; F25.9 Schizoaffective disorder, unspecified; B00.9 Herpesviral infection, unspecified; R40.4 Transient alteration of awareness; M79.7 Fibromyalgia; Z91.14 Patient's other noncompliance with medication regimen; F17.200 Nicotine dependence, unspecified, uncomplicated; Z71.6 Tobacco abuse counseling; H93.13 Tinnitus, bilateral; H66.93 Otitis media, unspecified, bilateral; R73.9 Hyperglycemia, unspecified; T38.0X5A Adverse effect of glucocorticoids and synthetic analogues, initial encounter; Z90.49 Acquired absence of other specified parts of digestive tract; Z88.1 Allergy status to other antibiotic agents; Z88.2 Allergy status to sulfonamides; E89.0 Postprocedural hypothyroidism; S80.02XA Contusion of left knee, initial encounter; W18.39XA Other fall on same level, initial encounter; Y93.89 Activity, other specified; Y92.89 Other specified places as the place of occurrence of the external cause
CPT/HCPCS: 36415; 36416; 80048; 80053; 80164; 81001; 82274; 85025; 87086; 87255; 87389; J7512; J7620

== ENCOUNTER 2020-10-10 12:31 | Emergency (ER) | payer MEDICARE, OTHER | END 2020-10-10 13:38 | disposition home or self-care (01) | LOC: BURERS 12:31 | DX: S39.012A Strain of muscle, fascia and tendon of lower back, initial encounter (principal); S80.02XA Contusion of left knee, initial encounter; I10 Essential (primary) hypertension; E03.9 Hypothyroidism, unspecified; J44.9 Chronic obstructive pulmonary disease, unspecified; F17.210 Nicotine dependence, cigarettes, uncomplicated; Z79.899 Other long term (current) drug therapy; W01.0XXA Fall on same level from slipping, tripping and stumbling without subsequent striking against object, initial encounter | CPT/HCPCS: 72100 ==